=== PATIENT | female | born 1955 | race Caucasian/White ===

== ENCOUNTER 2017-01-25 10:39 | Emergency (ER) | payer MEDICAID ==
[~2017-01-25 10:39] MED LIST: ADVAIR; ADVAIR 5001 DISK W/D; ADVAIR 50028 BLISTE1 INH; ALLERGY25 MG; AMMONIUM LAC; AMMONIUM LACTA140 GM; AMOXAPINE PO; AQUAPHOR OINT2270 GM; BACITRACIN OINTMENT; BACITRACIN30 GM; CHLORPHENIRAMINE; CIPRO500 M2 PO; CLARITIN10 M6 PO; COLACE-T100 MG; COSOPT EYE DROP10 ML EACH EYE; DEPAKOTE250 MG; DEPAKOTE500 M1 PO; DILTIAZEM ER240 M6 PO; DITROPAN5 MG; DOCUSATE CALCI100 MG; EFFEXOR XR37.5 MG; EFFEXOR XR75 M1 PO; EFFEXOR37.5 MG; FIBER THERAPY; FIBER THERAPY500 MG; HYDROCORTISO453.6 G4 TP; HYZAAR; HYZAAR 100-12.51 TAB; LACTULOSE; MAPAP325 M2 PO; MILK OF MAGNESIA PO; MINOCYCLINE HC100 MG; MIRTAZAPINE45 MG; NYSTATIN1 EA10 MC; OXYBUTYNIN CHLOR5 MG; POLYETHYLENE G255 G1 PO; PREMARIN0.625 MG; PROPRANOLOL HCL; PROPRANOLOL HCL80 MG; QUETIAPINE FUM400 M1 PO; REMERON15 M1 PO; RESTORIL15 M1 PO; SODIUM CHLORIDE 0.9%; TOPROL XL50 M1 PO; TRAVATAN5 ML; TRICOR145 M1; TRILIPIX135 M1 PO; VESICARE5 M1 PO; VITAMIN D31000 UNI3 PO; XALATAN2.5 M1 EACH EYE; [UNRECOGNIZED DRUG - OTHER]
[2017-01-25 11:48] LABS: URINE BILIRUBIN NEGATIVE (NEG); URINE BLOOD LARGE (NEG); URINE GLUCOSE (UA) NEGATIVE (NEG); URINE KETONE NEGATIVE (NEG); URINE LEUKOCYTE ESTERASE POSITIVE (NEG); URINE NITRITE NEGATIVE (NEG); URINE PROTEIN MODERATE (NEG)
[2017-01-25 11:49] LABS: URINE APPEARANCE CLOUDY; URINE COLOR YELLOW
[2017-01-25 12:02] LABS: URINE WBC 40-50 /[HPF] (0-5)
[2017-01-25 12:03] LABS: URINE RBC 80-100 /[HPF] (0-5)
[2017-01-25 12:04] LABS: URINE AMORPHOUS 1+; URINE BACTERIA 2+; URINE MUCUS 1+
[2017-01-25] MEDS ORDERED: CIPRO500 M2 PO (12:43)
== END 2017-01-25 13:13 ==
LOC: EDMED 10:39
PROVIDERS: Emergency Medicine
PROC: 0T9B70Z Drainage of Bladder with Drainage Device, Via Natural or Artificial Opening (ICD-10-PCS; principal; 2017-01-25)
DX: T83.018A Breakdown (mechanical) of other urinary catheter, initial encounter (principal); N39.0 Urinary tract infection, site not specified

== ENCOUNTER 2017-03-08 17:13 | Emergency (ER) | payer MEDICAID | END 2017-03-08 18:45 | disposition T | LOC: EDMED 17:13 | DX: S09.90XA Unspecified injury of head, initial encounter (principal); S00.03XA Contusion of scalp, initial encounter; I10 Essential (primary) hypertension; F17.210 Nicotine dependence, cigarettes, uncomplicated; Z79.899 Other long term (current) drug therapy; W01.198A Fall on same level from slipping, tripping and stumbling with subsequent striking against other object, initial encounter; Y92.019 Unspecified place in single-family (private) house as the place of occurrence of the external cause ==

== ENCOUNTER 2017-03-17 11:52 | Emergency (ER) | payer MEDICAID ==
[2017-03-17] MEDS ORDERED: GLUCOPHAGE500 M3 PO (12:03)
[2017-03-17] MEDS ORDERED: SPIRIVA18 MC1 INH (12:07)
[2017-03-17] MEDS ORDERED: XALATAN2.5 M1 OP (12:24)
[2017-03-17] MEDS ORDERED: POLYETHYLENE GL17 G1 PO (12:26)
[2017-03-17 13:15] LABS: BASO % 0.2 % (0-2); EOS % 1.9 % (0-7); EOSINOPHIL ABSOLUTE COUNT 0.2 tho/cmm (0.0-0.7); HCT-HEMATOCRIT 47.2 % (34.0-49.0); HGB-HEMOGLOBIN 15.2 gm/dl (12.0-15.5); IMMATURE GRANULOCYTES ABSOLUTE 0.06 tho/cmm (0-0.03); IMMATURE GRANULOCYTES PERCENT 0.7 % (0-0.3); LYMPH % 19.1 % (20-45); LYMPH ABSOLUTE COUNT 1.6 tho/cmm (0.8-4.5); MCH (MEAN CORPUSCULAR HGB) 30.3 pg (28.0-32.0); MCHC MEAN CORPUSCULAR HGB CONC 32.2 % (32.0-36.0); MEAN PLATELET VOLUME 10.6 cmc (9.4-12.4); MONO % 6.1 % (0-12); MONOCYTE ABSOLUTE COUNT 0.5 tho/cmm (0.0-1.2); NEUTROPHIL ABSOLUTE COUNT 5.9 tho/cmm (1.6-8.0); NEUTROPHIL-AUTOMATED 5.9 tho/cmm (1.6-8.0); PLATELET COUNT 243 tho/cmm (150-450); RED BLOOD COUNT 5.02 mil/cmm (4.00-5.20); RED CELL DISTRIBUTION WIDTH 15.6 % (12.4-16.4); WHITE BLOOD COUNT 8.2 tho/cmm (4.0-10.0)
[2017-03-17 13:27] LABS: ALB/GLOB RATIO 0.8 (0.8-2.0); ALBUMIN 3.4 g/dl (3.5-5.0); ALKALINE PHOSPHATASE 66 U/L (33-138); ALT/SGPT 17 U/L (12-78); ANION GAP 8 mmol/L (0-20); AST/SGOT 12 U/L (10-40); BILIRUBIN,TOTAL 0.5 mg/dl (0-1.5); BLOOD UREA NITROGEN 19 mg/dl (6-24); CALCIUM 9.5 mg/dl (8.5-10.5); CARBON DIOXIDE-VENOUS 38 mmol/L (22-32); CHLORIDE 98 mmol/l (96-110); GLUCOSE 92 mg/dL (70-110); LIPASE 144 U/L (73-393); POTASSIUM 4.1 mmol/L (3.7-5.1); SODIUM 140 mmol/L (135-145); eGFR VALUE FOR BLACK 71 mL/Min
[2017-03-17 13:45] LABS: URINE BILIRUBIN NEGATIVE (NEG); URINE BLOOD LARGE (NEG); URINE GLUCOSE (UA) NEGATIVE (NEG); URINE KETONE NEGATIVE (NEG); URINE LEUKOCYTE ESTERASE POSITIVE (NEG); URINE NITRITE NEGATIVE (NEG); URINE PH 6.5 (5.0-8.0); URINE PROTEIN MODERATE (NEG); URINE SPECIFIC GRAVITY 1.015 (1.003-1.030)
[2017-03-17 13:46] LABS: URINE APPEARANCE CLEAR; URINE COLOR YELLOW
[2017-03-17 13:51] LABS: URINE EPITHELIAL CELLS RARE /[HPF] (0-10); URINE WBC 15-20 /[HPF] (0-5)
[2017-03-17] MEDS ORDERED: ZOFRAN4 M2 PO (15:56)
== END 2017-03-17 16:41 ==
LOC: EDMED 11:52
PROVIDERS: Physician Assistant
DX: E86.0 Dehydration (principal); R11.10 Vomiting, unspecified; I10 Essential (primary) hypertension; J44.9 Chronic obstructive pulmonary disease, unspecified; Z90.710 Acquired absence of both cervix and uterus; F17.210 Nicotine dependence, cigarettes, uncomplicated; Z79.899 Other long term (current) drug therapy
CPT/HCPCS: C1751; J7030; P9612; Q9967